=== PATIENT | female | born 1980 | race Caucasian/White ===

== ENCOUNTER → 2016-09-25 | Outpatient (CLI) | payer MEDICARE | LOC: SLEEP-COR 21:30 | DX: G47.33 Obstructive sleep apnea (adult) (pediatric) (principal) | CPT/HCPCS: 95810 ==

== ENCOUNTER → 2016-10-29 | Outpatient (CLI) | payer MEDICARE | LOC: MRI 09:00 | DX: M79.7 Fibromyalgia (principal); M62.81 Muscle weakness (generalized) | CPT/HCPCS: 70553; A9577 ==

== ENCOUNTER → 2021-05-05 | Outpatient (CLI) | payer MEDICARE ==
[~2021-05-05] MED LIST: PRINIVIL20 MG PO
== END ==
LOC: SLEEP-COR 15:18
DX: G47.33 Obstructive sleep apnea (adult) (pediatric) (principal); J32.4 Chronic pansinusitis; J30.1 Allergic rhinitis due to pollen; G47.61 Periodic limb movement disorder
CPT/HCPCS: 95810

== ENCOUNTER 2021-10-22 18:48 | Emergency (ER) | payer MEDICARE ==
[2021-10-22 20:13] LABS: HEMOGLOBIN 13.6 gm/dl (12.3-15.3); RED BLOOD COUNT 4.36 M/UL (4.00-5.10); WHITE BLOOD COUNT 8.4 K/UL (4.5-11.0)
[2021-10-22] MEDS ORDERED: IBUPROFEN800 MG PO (21:35)
== END 2021-10-22 21:55 | disposition home or self-care (01) ==
LOC: ER1 18:48
PROVIDERS: Emergency Medicine
DX: K05.10 Chronic gingivitis, plaque induced (principal); R51.9 Headache, unspecified
CPT/HCPCS: 70450; 70487; 80053; 85025; 85652; 86140; 96372; 99284; J1885; Q9967